=== PATIENT | male | born 1990 | race Caucasian/White ===

== ENCOUNTER 2022-01-28 10:21 | Outpatient (CLI) | payer OTHER, SELFPAY ==
[2022-01-28 12:32] LABS: Cholesterol* 164 mg/dL (90-199); HDL Cholesterol* 52 mg/dL (>=40); LDL Cholesterol Calculated 102 mg/dL (<100); Triglycerides* 48 mg/dL (40-149)
[2022-01-28 13:14] LABS: Glucose* 92 mg/dL (60-115)
== END 2022-01-28 10:22 | disposition home or self-care (01) ==
PROVIDERS: PCP Family Medicine; Visit Provider Family Medicine
DX: Z00.00 Encounter for general adult medical examination without abnormal findings (principal); Z13.1 Encounter for screening for diabetes mellitus; Z13.6 Encounter for screening for cardiovascular disorders
CPT/HCPCS: 80061; 82947

== ENCOUNTER 2022-04-18 13:37 | Outpatient (CLI) | payer OTHER, SELFPAY | END 2022-04-18 13:38 | disposition home or self-care (01) | LOC: RAD 13:38 | PROVIDERS: PCP Family Medicine; Visit Provider Internal Medicine Cardiovascular Disease | DX: I34.0 Nonrheumatic mitral (valve) insufficiency (principal); I34.1 Nonrheumatic mitral (valve) prolapse | CPT/HCPCS: 93306 ==

== ENCOUNTER 2023-02-17 08:59 | Outpatient (CLI) | payer BC, SELFPAY | END 2023-02-17 09:00 | disposition home or self-care (01) | PROVIDERS: PCP Family Medicine; Referring Provider Family Medicine; Visit Provider Family Medicine | DX: E78.5 Hyperlipidemia, unspecified (principal) | CPT/HCPCS: 80061 ==

== ENCOUNTER 2023-03-03 09:05 | Outpatient (CLI) | payer BC, SELFPAY | END 2023-03-03 09:06 | disposition home or self-care (01) | LOC: RAD 09:05 | PROVIDERS: PCP Family Medicine; Visit Provider Family Medicine | DX: I34.1 Nonrheumatic mitral (valve) prolapse (principal); I34.0 Nonrheumatic mitral (valve) insufficiency | CPT/HCPCS: 93306 ==

== ENCOUNTER 2024-10-21 08:45 | Outpatient (CLI) | payer BC, SELFPAY | END 2024-10-21 08:46 | disposition home or self-care (01) | LOC: NFLDREF 19:25 | PROVIDERS: PCP Family Medicine; Referring Provider Family Medicine; Visit Provider Family Medicine | DX: Z00.00 Encounter for general adult medical examination without abnormal findings (principal); Z13.6 Encounter for screening for cardiovascular disorders; Z13.1 Encounter for screening for diabetes mellitus | CPT/HCPCS: 80061; 82947 ==

== ENCOUNTER 2024-11-18 12:43 | Outpatient (CLI) | payer BC, SELFPAY ==
--- OUTSIDE RECORDS SUMMARY | 2024-11-19 02:25 | XMS_ITS | Clinical Summary ---
Author Organization [place] Address [facility] [place] [address] Care Team Providers Care Music Grapher Name Role Phone Pierce Denny MD Primary Care Provide r Allergies No known active allergies Medications albuterol (PROAIR HFA/PROVENTIL HFA/VENTOLIN HFA) 108 (90 Base) MCG/ACT inhalerIndication s:Mild intermittent asthma without complication Inhale 1-2 puffs into the lungs every 6 hours 1 Inhaler 3 06/21/2019 Active Immunizations Immunization Administration Dates Next Due Influenza Vaccine >6 months,quad, PF 06/21/2019 TDAP Vaccine (Adacel) 09/16/2018 Family History Medical History Relation Comments Hyperlipidemia Father Coronary Artery Disease Maternal Uncle Relation Status Comments Father Alive Maternal Uncle Mother Alive Social History Tobacco Use Types Packs/Day Years Used Date Smoking Tobacco: Never Smokeless Tobacco: Never Alcohol Use Standard Drinks/Week Comments Yes 0 (1 standard drink = 0.6 oz pur e alcohol) OCC PHQ-2 Answer Date Recorded PHQ-2 Score 0 06/21/2019 Sex and Gender Information Value Date Recorded Sex Assigned at Not on file Legal 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 [employer] Gender Identity Not on file Sexual Orientation Not on file Last Filed Vital Signs Vital Sign Reading Time Taken Comments Blood Pressure 122/68 06/21/2019 8:38 AM MANAGER [employer]IPMENT Pulse 80 06/21/2019 8:38 AM MANAGER [employer]QUIPMENT Temperature 36.2 C (97.1 F) 06/21/2019 8:38 AM MANAGER [employer]QUIPMENT Respiratory Rate 16 06/21/2019 8:38 AM MANAGER HE[employer] EQUIPMENT Oxygen Saturation 98% 06/21/2019 8:38 AM MANAGER [employer] EQUIPMENT Inhaled Oxygen Concentration - - Weight 76.7 kg (169 lb) 06/21/2019 8:38 AM MANAGER [employer]MENT Height 180.3 cm (5' 11) 06/21/2019 8:38 AM MANAGER [employer]QU[employer]MENT Body Mass Index 23.57 06/21/2019 8:38 AM MANAGER [employer]MENT Plan of Treatment Not on file Insurance [facility] [place] Care Teams Music Grapher Relationship Specialty Start Date End Date Pierce Denny MD PCP - General Family Practice 06/14/19
--- OUTSIDE RECORDS SUMMARY | 2024-11-19 02:25 | XMS_ITS | Clinical Summary ---
Author Organization [facility] Address [address] [place] [address] Care Team Providers Care [facility] Medical Biller Name Role Phone Unavailable Primary Care Provider Unavailabl e Source Comments You are receiving this document as you are listed as the primary care provider,follow-up provider, or the patient has been referred to you for consultation.This is in compliance with the Medicare and[facility] EHR Incentive Program,which states Providers who transition their patient to another setting of careor provider of care or refers their patient to another provider of care shouldprovide summary care record for each transition of care or referral. [facility] Allergies No known active allergies Medications No known medications Active Problems No known active problems Immunizations Immunization Administration Dates Next Due Tdap 09/16/2018 Social History Tobacco Use Types Packs/Day Years Used Date Smoking Tobacco: Never Smokeless Tobacco: Never Sex and Gender Information Value Date Recorded Sex Assigned at Not on file Legal Sex Male 4:48 PM CDT Gender Identity Not on file Sexual Orientation Not on file Last Filed Vital Signs Vital Sign Reading Time Taken Comments Blood Pressure 94/63 09/17/2018 7:47 AM CDT Pulse 64 09/17/2018 7:47 AM CDT Temperature 36.7 C (98 F) 09/16/2018 8:23 PM CDT Respiratory Rate 20 09/16/2018 8:23 PM CDT Oxygen Saturation 99% 09/16/2018 8:23 PM CDT Inhaled Oxygen Concentration - - Weight 77.1 kg (170 lb) 09/16/2018 8:23 PM CDT Height 182.9 cm (6') 09/16/2018 8:23 PM CDT Body Mass Index 23.06 09/16/2018 8:23 PM CDT Plan of Treatment Health Maintenance Due Date Last Done Comments Hep C Screening (Preventive Services) 1990 HIV Screening (Preventive Services) 2006 Adult Preventive Visit 2008 HepB Vaccine (1) 2009 COVID-19 Vaccine (2 - 2023-2 5 season) 2024 08/25/2020 Influenza Vaccine (Season Ended) 2025 06/21/19 20 DTaP/Tdap/Td Vaccine (2 - Tdap) 09/16/2028 9 Zoster/Shingles Vaccine (1 of 2) 2040 HPV Vaccine Aged Out No longer eligi ble based on patient's age to complete this topic HepA Vaccine Aged Out No longer eligi ble based on patient's age to complete this topic Hib Vaccine Aged Out No longer eligi ble based on patient's age to complete this topic IPV (Polio) Vaccine Aged Out No longe r eligible based on patient's age to complete this topic MCV4 Vaccine Aged Out No longer eligi ble based on patient's age to complete this topic Meningococcal B Vaccine Aged Out No l onger eligible based on patient's age to complete this topic Pneumococcal Vaccine Aged Out No long er eligible based on patient's age to complete this topic Insurance [employer]
--- OUTSIDE RECORDS SUMMARY | 2024-11-19 02:25 | XMS_ITS | Clinical Summary ---
Author Organization [facility] Address [address] [place] [address] Care Team Providers Care Manager Fine Name Role Phone Faheem Brink MD Primary Care Provider [phone] Allergies No known active allergies Medications Flovent HFA 110 mcg/actuation inhaler Inhale by mouth 2 times daily. 03/08/2021 Active albuterol HFA (PRO-AIR; VENTOLIN; PROVENTIL) 90 mcg/actuation inhaler Inhale 1-2 Puffs by mouth every 6 hours. 06/21/2019 Active famotidine (Pepcid AC) 10 mg tablet Take 1 Tablet (10 mg) by mouth once daily. 05/19/2023 Active Encounters Date Type Department Care Team Description 11/18/2024 1:00 PM CDT Ancillary Procedure [facility] [address] [place] [address] Arrived 11/15/2024 Telephone [facility] [address] [facility] [address] [place] [id number] Juan F Mackey MD Questions from Last 3 Months Social History Tobacco Use Types Packs/Day Years Used Date Smoking Tobacco: Never Smokeless Tobacco: Never Alcohol Use Standard Drinks/Week Comments Yes 0 (1 standard drink = 0.6 oz pur e alcohol) occ Social Connections Answer Date Recorded Frequency of Communication with Friends and Fami ly Not on file 05/22/2021 Financial Resource Strain Answer Date R ecorded Difficulty of Paying Living Expenses Not on file 05/22/2021 Difficulty of Paying Living Expenses Not on file 05/22/2021 Sex and Gender Information Value Date Recorded Sex Assigned at Not on file Legal Sex Male 10:00 AM CDT Gender Identity Not on file Sexual Orientation Not on file Obstetrics History Last Filed Vital Signs Vital Sign Reading Time Taken Comments Blood Pressure 131/67 03/28/2022 2:50 PM 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 Pulse 64 03/28/2022 2:50 PM 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 Temperature - - Respiratory Rate - - Oxygen Saturation 99% 03/28/2022 2:50 PM 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 Inhaled Oxygen Concentration - - Weight 78.7 kg (173 lb 8 oz) 03/28/2022 2:50 PM 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 Height 182.9 cm (6') 03/28/2022 2:50 PM 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 Body Mass Index 23.53 03/28/2022 2:50 PM 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 Plan of Treatment Health Maintenance Due Date Last Done Comments Tdap 2001 Depression screening for age 12+ 2002 HIV for age 15-65 2005 Hepatitis C screening for age 18-79 2008 Hepatitis B series for 19+ ( 1 of 3 - 19+ 3-dose series) 2009 Pneumococcal series for age 6-49 (1 of 2 - PCV) 2009 Tetanus booster 2010 BMI (ht and wt on same day) for age 18+ 03/28/2023 03/28/2022, 03/17/2021 COVID-19 vaccine series ( season) 2024 07/28/2021, 09/22/2020, 08/25/2020 Influenza Vaccine (Season Ended) 2025 Procedures Procedure Name Priority Date/Time Associated Diagnosis Comments ECHO TTE COMPLETE WO CONTRAST Routine 11/18/2024 1:23 PM CDT Nonrheumatic mitral (valve) prolapse from Last 3 Months Results * ECHO TTE COMPLETE WO CONTRAST (11/18/2024 1:23 PM CDT) AORTIC VALVE MEAN PG 4 mmHg EJECTION FRACTION 71 % PEAK TR VELOCITY 2.4 m/s LVEDD 5.8 cm Anatomical Region Laterality Modality Ultrasound 11/18/2024 12:5 7 PM CDT Narrative 11/18/2024 2:29 PM CDT ECHOCARDIOGRAM LARRY MENDIETA : 1990 34 years Study Date: 11/18/2024 12:57:39 PM Gender: M BP: 121/71 mmHg Height: 183.00 cm BSA: 1.97 m Weight: 75.00 kg Tech: [facility] Referring MD: FAHEEM BRINK Site: [facility] Reading Location: Mobile-OP Patient Location: Outpatient. Procedure: 2D, Color Doppler and Spectral Doppler. Indication for study: Nonrheumatic mitral (valve) prolapse Cardiac Rhythm: Regular.Study quality: Fair. Final Impressions: 1. Mild to moderately increased left ventricular size, normal wall thickness, normal global systolic function, calculated EF of 71 %. 2. Right ventricular cavity size is normal, global systolic RV function is normal. 3. The mitral valve is myxomatous, moderate eccentric mitral regurgitation. Mitral annual dysfunction is present, measuring 0.6cm. 4. Moderate mitral valve prolapse. 5. The inferior vena cava is dilated, respiratory size variation less than 50%. 6. No pericardial effusion. Comparison Compared to prior exam images and report of 03/03/2023, there has been no significant change. Chamber Sizes and Function Mild to moderately increased left ventricular size, normal wall thickness, normal global systolic function, calculated EF of 71 %. No resting regional wall motion abnormality visualized. Left atrial size is normal. Right ventricular cavity size is normal, global systolic RV function is normal. The right atrium is normal. Right atrial volume index is 26 ml/m . Right atrial area is 17 cm . The pulmonary artery is of normal size and origin. The sinus of Valsalva is normal sized. The ascending aorta is normal sized. Valves, RV Pressures and Diastolic Function The aortic valve is normal in structure, no stenosis and no regurgitation. The mitral valve is myxomatous, moderate mitral regurgitation. There is moderate prolapse of the anterior leaflet and posterior leaflet of the mitral valve. Normal diastolic function. The tricuspid valve is normal in structure, mild tricuspid regurgitation. The tricuspid regurgitant velocity is 2.4 m/s, the estimated right ventricular systolic pressure is 24 mmHg plus right atrial pressure. The pulmonic valve is normal. Trace pulmonary regurgitation. Masses, Effusion, Shunts There is no pericardial effusion. The inferior vena cava is dilated, respiratory size variation less than 50%. No left to right shunting was detected by limited color flow Doppler interrogation of the interatrial septum. MEASUREMENTS AND CALCULATIONS 2-D Measurements and LV Function: LVID (d) 5.8 cm Planimetered EF 71 % LVID (s) 3.4 cm LV FS% (2D) 41 % IVS (d) 0.8 cm LVOT diameter 2.3 cm LVPW (d) 1.2 cm HR 65 bpm Ao Sinus 3.5 cm LA Vol index 30 ml/m2 Ao Sinus ULN 3.8 cm RA Vol index 26 ml/m2 Asc Ao 3.2 cm RA area 17 cm Asc Ao ULN 3.5 cm RV Basal Diam 5.2 cm LA 3.8 cm RV Mid Diam 3.1 cm Diastology: Mitral Tissue Doppler E Peak 1.1 m/s e', Septum 0.13 m/s A Peak 0.5 m/s E/A 2.0 DT 400 msec Aortic Valve: Vmax 1.4 m/s CATHERINE (V) 3.46 cm VTI 0.27 m CATHERINE (I) 3.28 cm LVOT V max 1.1 m/s Max PG 8 mmHg LVOT VTI 0.21 m Mean PG 4 mmHg SV 87 ml Dim Index 0.78 SV index 44 ml/m CO 5.7 l/min CI 2.9 l/min/m Mitral Valve: MVA 1.9 cm MV P 1/2 116 msec Tricuspid Valve and estimated PA pressures: TR Vmax 2.4 m/s TAPSE 3.1 cm TR maxG 24 mmHg TV Annulus 3.8 cm . Report modified by Amber Singh MD on 11/18/2024 2:30:13 PM. This study was interpreted by an [facility] accredited facility. Final (Updated) Procedure Note Amber Singh MD - 11/18/2024 ECHOCARDIOGRAM LARRY MENDIETA : 1990 34 years Study Date: 11/18/2024 12:57:39 PM Gender: M BP: 121/71 mmHg Height: 183.00 cm BSA: 1.97 m Weight: 75.00 kg Tech: [facility] Referring MD: FAHEEM BRINK Site: [facility] Reading Location: Mobile-OP Patient Location: Outpatient. Procedure: 2D, Color Doppler and Spectral Doppler. Indication for study: Nonrheumatic mitral (valve) prolapse Cardiac Rhythm: Regular.Study quality: Fair. Final Impressions: 1. Mild to moderately increased left ventricular size, normal wallthickness, normal global systolic function, calculated EF of 71 %. 2. Right ventricular cavity size is normal, global systolic RV functionis normal. 3. The mitral valve is myxomatous, moderate eccentric mitralregurgitation. Mitral annual dysfunction is present, measuring 0.6cm. 4. Moderate mitral valve prolapse. 5. The inferior vena cava is dilated, respiratory size variation lessthan 50%. 6. No pericardial effusion. Comparison Compared to prior exam images and report of 03/03/2023, there has been nosignificant change. Chamber Sizes and Function Mild to moderately increased left ventricular size, normal wall thickness,normal global systolic function, calculated EF of 71 %. No restingregional wall motion abnormality visualized. Left atrial size is normal.Right ventricular cavity size is normal, global systolic RV function isnormal. The right atrium is normal. Right atrial volume index is 26ml/m . Right atrial area is 17 cm . The pulmonary artery is of normalsize and origin. The sinus of Valsalva is normal sized. The ascendingaorta is normal sized. Valves, RV Pressures and Diastolic Function The aortic valve is normal in structure, no stenosis and no regurgitation.The mitral valve is myxomatous, moderate mitral regurgitation. There ismoderate prolapse of the anterior leaflet and posterior leaflet of themitral valve. Normal diastolic function. The tricuspid valve is normal instructure, mild tricuspid regurgitation. The tricuspid regurgitantvelocity is 2.4 m/s, the estimated right ventricular systolic pressure is24 mmHg plus right atrial pressure. The pulmonic valve is normal. Tracepulmonary regurgitation. Masses, Effusion, Shunts There is no pericardial effusion. The inferior vena cava is dilated,respiratory size variation less than 50%. No left to right shunting wasdetected by limited color flow Doppler interrogation of the interatrialseptum. MEASUREMENTS AND CALCULATIONS 2-D Measurements and LV Function: LVID (d) 5.8 cm Planimetered EF 71 % LVID (s) 3.4 cm LV FS% (2D) 41 % IVS (d) 0.8 cm LVOT diameter 2.3 cm LVPW (d) 1.2 cm HR 65 bpm Ao Sinus 3.5 cm LA Vol index 30 ml/m2 Ao Sinus ULN 3.8 cm RA Vol index 26 ml/m2 Asc Ao 3.2 cm RA area 17 cm Asc Ao ULN 3.5 cm RV Basal Diam 5.2 cm LA 3.8 cm RV Mid Diam 3.1 cm Diastology: Mitral Tissue Doppler E Peak 1.1 m/s e', Septum 0.13 m/s A Peak 0.5 m/s E/A 2.0 DT 400 msec Aortic Valve: Vmax 1.4 m/s CATHERINE (V) 3.46 cm VTI 0.27 m CATHERINE (I) 3.28 cm LVOT V max 1.1 m/s Max PG 8 mmHg LVOT VTI 0.21 m Mean PG 4 mmHg SV 87 ml Dim Index 0.78 SV index 44 ml/m CO 5.7 l/min CI 2.9 l/min/m Mitral Valve: MVA 1.9 cm MV P 1/2 116 msec Tricuspid Valve and estimated PA pressures: TR Vmax 2.4 m/s TAPSE 3.1 cm TR maxG 24 mmHg TV Annulus 3.8 cm . Report modified by Amber Singh MD on 11/18/2024 2:30:13 PM. This study was interpreted by an [facility] accredited facility. Final (Updated) Faheem Brink MD ECHO ORD Edited Result - Final from Last 3 Months Insurance [facility] Care Teams Manager Fine Relationship Specialty Start Date End Date Faheem Brink MD [address] [place] [id number] PCP - General Family Practice 03/04/21
== END 2024-11-18 12:44 | disposition home or self-care (01) ==
LOC: RAD 12:44
PROVIDERS: PCP Family Medicine; Visit Provider Family Medicine
DX: I34.1 Nonrheumatic mitral (valve) prolapse (principal); I34.0 Nonrheumatic mitral (valve) insufficiency
CPT/HCPCS: 93306